=== PATIENT | male | born 1995 | race Caucasian/White ===

== ENCOUNTER 2017-07-05 14:23 | Emergency (ER) | payer BC ==
[2017-07-05 14:56] VITALS: BP 119/63
[2017-07-05] MEDS ORDERED: Dexamethasone TAB* 4 MG PO ONE (15:09)
--- NOTE | 2017-07-05 15:20 | UC ---
Respiratory Complaint HPI - HPI Summary HPI Summary: Patient presents with three days onset ears plugging, head congestion, and sore throat difficulty with swallowing. He states his throat is painful constantly, but worse when he speaks, or swallows. He is able to handle his own secretions. - History of Current Complaint Hx Obtained From: Patient Onset/Duration: Gradual Onset, Lasting Days Timing: Constant Severity Initially: Moderate Severity Currently: Moderate Associated Signs And Symptoms: Positive: URI - Risk Factors Pulmonary Embolism Risk Factors: Negative Cardiac Risk Factors: Negative Pseudomonas Risk Factors: Negative Tuberculosis Risk Factors: Negative <Catrachita Cervantes - Last Filed: 07/05/17 15:52> <Beth Gaviria - Last Filed: 07/05/17 16:41> - History of Current Complaint Chief Complaint: UCRespiratory Stated Complaint: URI Time Seen by Provider: 07/05/17 15:04 - Allergies/Home Medications Allergies/Adverse Reactions: Allergies Allergy/AdvReac Type Severity Reaction Status Date / Time No Known Allergies Allergy Verified 07/05/17 14:56 PMH/Surg Hx/FS Hx/Imm Hx Previously Healthy: Yes - Surgical History Surgical History: None Surgery Procedure, Year, and Place: Tonsils - Family History Known Family History: Positive: None, Other - father of lymphatic cancer - Social History Occupation: Student Alcohol Use: Occasionally Substance Use Type: None Smoking Status (MU): Never Smoked Tobacco - Immunization History Most Recent Influenza Vaccination: 07/05 Most Recent Tetanus Shot: due in a year <Catrachita Cervantes - Last Filed: 07/05/17 15:52> Review of Systems Constitutional: Fever, Fatigue Skin: Negative Eyes: Negative ENT: Sore Throat Respiratory: Negative Cardiovascular: Negative Gastrointestinal: Negative Genitourinary: Negative Motor: Negative Neurovascular: Negative Musculoskeletal: Negative Neurological: Negative Psychological: Negative All Other Systems Reviewed And Are Negative: Yes <Catrachita Cervantes - Last Filed: 07/05/17 15:52> Physical Exam Triage Information Reviewed: Yes Appearance: Ill-Appearing Vital Signs: Initial Vital Signs Temp 97.8 F 07/05/17 14:53 Pulse 79 07/05/17 14:53 Resp 12 07/05/17 14:53 BP 119/63 07/05/17 14:53 Pulse Ox 98 07/05/17 14:53 Vital Signs Reviewed: Yes Eye Exam: Normal ENT: Positive: Pharyngeal erythema Neck exam: Normal Respiratory Exam: Normal Cardiovascular Exam: Normal Abdominal Exam: Normal Skin Exam: Normal <Catrachita Cervantes - Last Filed: 07/05/17 15:52> Vital Signs: Initial Vital Signs Temp 97.8 F 07/05/17 14:53 Pulse 79 07/05/17 14:53 Resp 12 07/05/17 14:53 BP 119/63 07/05/17 14:53 Pulse Ox 98 07/05/17 14:53 <Beth Gaviria - Last Filed: 07/05/17 16:41> Diagnostic Evaluation - Laboratory O2 Sat by Pulse Oximetry: 98 <Catrachita Cervantes - Last Filed: 07/05/17 15:52> Respiratory Course/Dx - Course Course Of Treatment: Patient presents with three day onset fever, sore throat. Influenza was negative. Treatment penvk 500 mg by mouth four times daily x 10 days. Rest, fluids and if symtpoms fo not improve as anticipated to follow up with PCP. - Differential Dx/Diagnosis Differential Diagnosis/HQI/PQRI: Other - pharyngitis Provider Diagnoses: pharyngitis <Catrachita Cervantes - Last Filed: 07/05/17 15:52> Discharge <Catrachita Cervantes - Last Filed: 07/05/17 15:52> <Beth Gaviria - Last Filed: 07/05/17 16:41> - Discharge Plan Condition: Stable Disposition: HOME Prescriptions: Penicillin VK 500 MG TAB(NF) [Penicillin VK 500 mg Tab] 500 mg PO QID #40 tab Patient Education Materials: Pharyngitis (ED) Forms: *School Release Referrals: Michi MONSIVAIS,Jaz Reeves [Primary Care Provider] - Attestation Statement User Type: Provider - I was available for consult. This patient was seen by the [facility]. The patient was not presented to, seen by, or examined by me. -Susan <Beth Gaviria - Last Filed: 07/05/17 16:41>
== END 2017-07-05 16:05 | disposition home or self-care (01) ==
LOC: UCEAST 14:23
DX: J02.9 Acute pharyngitis, unspecified (principal)
CPT/HCPCS: 87502; 99212; G0463; J8540

== ENCOUNTER 2020-03-04 08:38 | Inpatient (IN) ==
[2020-03-04 09:19] LABS: ABS Eosinophils 0.1 10^3/ul (0-0.6); ABS Lymphocytes 1.7 10^3/ul (1.0-4.8); ABS Monocytes 0.6 10^3/ul (0-0.8); Eosinophil % 1.2 %; Hematocrit 51 % (42-52); Hemoglobin 17.2 g/dL (14.0-18.0); Lymphocyte % 35.7 %; Mean Corpuscular HGB Conc 34 g/dL (31-36); Mean Corpuscular Hemoglobin 31 pg (27-31); Mean Corpuscular Volume 91 fL (80-94); Mean Platelet Volume 10.2 fL (7.4-10.4); Platelet Count 193 10^3/uL (150-450); Red Blood Count 5.55 10^6 /uL (4.18-5.48); Red Cell Distribution Width 14 % (10-15); White Blood Count 4.9 10^3/uL (3.5-10.8)
[2020-03-04 09:29] LABS: Urine Appearance Clear; Urine Blood Negative (Negative); Urine Color Yellow; Urine Ketones Negative (Negative); Urine Protein 1+(30 mg/dL) (Negative); Urine Specific Gravity 1.025 (1.010-1.030); Urine Urobilinogen Negative (Negative)
[2020-03-04 09:30] LABS: Urine Bilirubin Negative (Negative); Urine Glucose Negative (Negative); Urine Nitrite Negative (Negative)
[2020-03-04 09:31] LABS: Urine Bacteria Absent (Absent); Urine Red Blood Cell 1+(3-5/hpf) (Absent); Urine White Blood Cell Trace(0-5/hpf) (Absent)
[2020-03-04 09:36] LABS: ALT 34 U/L (7-52); AST 21 U/L (13-39); Albumin/Globulin Ratio 2.2 (1-3); Alkaline Phosphatase 44 U/L (34-104); Anion Gap 5 mmol/L (2-11); BUN/Creatinine Ratio 13.1 (8-20); Blood Urea Nitrogen 14 mg/dL (6-24); CO2 Carbon Dioxide 30 mmol/L (22-32); Calcium 10.3 mg/dL (8.6-10.3); Chloride 103 mmol/L (101-111); EGFR African American 103.6 (>60); EGFR Non-African American 85.6 (>60); Globulin 2.3 g/dL (2-4); Glucose 105 mg/dL (70-100); Sodium 138 mmol/L (135-145); Total Protein 7.3 g/dL (6.4-8.9)
[2020-03-04 09:42] LABS: Urine Benzodiazepine Screen None Detected (None Detect); Urine Opiates Screen None Detected (None Detect)
[2020-03-04 10:19] LABS: Acetaminophen < 15 mcg/mL; Alcohol, S < 10 mg/dL (<10); Salicylate < 2.50 mg/dL (<30)
[2020-03-04 10:42] LABS: TSH (Thyroid Stimulating Horm) 1.09 mcIU/mL (0.34-5.60)
[2020-03-04] MEDS ORDERED: Al Hydrox/Mg Hydrox/Simet LIQ 30 ML UDC PO PRN (10:49)
[2020-03-05] MEDS ORDERED: LORazepam 1 mg TAB (*) ONE (10:17)
[2020-03-05] MEDS: LORazepam 1 mg TAB (*) PO SCH ×3 (10:18→20:03)
[2020-03-05] MEDS ORDERED: LORazepam 1 mg TAB (*) PO SCH (14:00)
[2020-03-05] MEDS ORDERED: LORazepam 2 mg VIAL 1 ml IM ONE (15:19)
[2020-03-05] MEDS ORDERED: Lorazepam PYXIS KEY PRN (15:19)
[2020-03-05] MEDS ORDERED: LORazepam 1 mg TAB (*) PO ONE (15:26)
[2020-03-06] MEDS: LORazepam 1 mg TAB (*) PO SCH ×4 (10:22→21:28)
[2020-03-07] MEDS: LORazepam 1 mg TAB (*) PO SCH ×3 (09:13→21:13)
[2020-03-07] MEDS: OLANzapine 5 mg TAB*ODT PO SCH (12:16)
[2020-03-08] MEDS: LORazepam 1 mg TAB (*) PO SCH ×3 (08:27→21:33)
[2020-03-08] MEDS: OLANzapine 5 mg TAB*ODT PO SCH (08:28)
[2020-03-09] MEDS: LORazepam 1 mg TAB (*) PO SCH ×3 (08:13→20:53)
[2020-03-10] MEDS: LORazepam 1 mg TAB (*) PO SCH ×3 (09:13→21:09)
[2020-03-11] MEDS: LORazepam 1 mg TAB (*) PO SCH ×3 (08:06→22:29)
[2020-03-12] MEDS: LORazepam 1 mg TAB (*) PO SCH ×3 (08:15→21:32)
[2020-03-13] MEDS: LORazepam 1 mg TAB (*) PO SCH ×3 (10:35→20:20)
[2020-03-14] MEDS: LORazepam 1 mg TAB (*) PO SCH ×3 (08:58→20:30)
[2020-03-15] MEDS: LORazepam 1 mg TAB (*) PO SCH ×3 (08:27→20:19)
[2020-03-16] MEDS: LORazepam 1 mg TAB (*) PO SCH ×3 (09:29→19:56)
[2020-03-17] MEDS: LORazepam 1 mg TAB (*) PO SCH ×3 (08:29→20:02)
[2020-03-18] MEDS: LORazepam 1 mg TAB (*) PO SCH ×3 (08:21→20:03)
[2020-03-18 09:55] LABS: Folate 12.51 ng/mL (>3.99)
[2020-03-18 12:19] LABS: HIV 4th Generation Nonreactive (Nonreactive)
[2020-03-19] MEDS: LORazepam 1 mg TAB (*) PO SCH (08:32)
[2020-03-19 10:45] VITALS: BP 139/80
== END 2020-03-19 11:15 | disposition home or self-care (01) | DRG 750 ==
LOC: ED 08:38 → BSU 10:49 → ED 14:01
PROVIDERS: ADMIT Psychiatry & Neurology Psychiatry; ATTEND Psychiatry & Neurology Psychiatry

== ENCOUNTER 2020-08-23 18:05 | Inpatient (IN) ==
[2020-08-23 19:17] LABS: ABS Lymphocytes 1.4 10^3/ul (1.0-4.8); ABS Neutrophils 9.7 10^3/ul (1.5-7.7); Eosinophil % 0.2 %; Hematocrit 50 % (42-52); Hemoglobin 17.6 g/dL (14.0-18.0); Lymphocyte % 11.2 %; Mean Corpuscular HGB Conc 36 g/dL (31-36); Mean Corpuscular Hemoglobin 31 pg (27-31); Mean Corpuscular Volume 88 fL (80-94); Mean Platelet Volume 9.3 fL (7.4-10.4); Nucleated Red Blood Cells % 0.1; Platelet Count 280 10^3/uL (150-450); Red Blood Count 5.62 10^6 /uL (4.18-5.48); Red Cell Distribution Width 14 % (10-15); White Blood Count 12.2 10^3/uL (3.5-10.8)
[2020-08-23 19:28] LABS: ALT 16 U/L (7-52); Albumin 5.2 g/dL (3.2-5.2); Albumin/Globulin Ratio 1.9 (1-3); Alkaline Phosphatase 47 U/L (34-104); BUN/Creatinine Ratio 12.8 (8-20); Blood Urea Nitrogen 14 mg/dL (6-24); CO2 Carbon Dioxide 24 mmol/L (22-32); Calcium 9.9 mg/dL (8.6-10.3); Chloride 106 mmol/L (101-111); EGFR African American 101.4 (>60); EGFR Non-African American 83.8 (>60); Globulin 2.8 g/dL (2-4); Glucose 101 mg/dL (70-100); Sodium 140 mmol/L (135-145)
[2020-08-23 19:45] LABS: Acetaminophen < 15 mcg/mL; Alcohol, S < 10 mg/dL (<10); Salicylate < 2.50 mg/dL (<30)
[2020-08-23 20:11] LABS: AST 16 U/L (13-39); Anion Gap 10 mmol/L (2-11); Potassium 3.8 mmol/L (3.5-5.0)
[2020-08-23 20:37] LABS: TSH Ultra Thyroid Stim Horm 1.93 mcIU/mL (0.34-5.60)
[2020-08-23 22:01] LABS: Urine Appearance Clear; Urine Bilirubin Negative (Negative); Urine Blood Negative (Negative); Urine Color Yellow; Urine Glucose Negative (Negative); Urine Ketones Negative (Negative); Urine Nitrite Negative (Negative); Urine Protein 1+(30 mg/dL) (Negative); Urine Specific Gravity 1.019 (1.010-1.030); Urine Urobilinogen Negative (Negative)
[2020-08-23 22:18] LABS: Urine Benzodiazepine Screen None Detected (None Detect); Urine Cannabinoids Screen None Detected (None Detect); Urine Opiates Screen None Detected (None Detect)
[2020-08-23 22:43] LABS: Urine Bacteria Absent (Absent); Urine Red Blood Cell Trace(0-2/hpf) (Absent); Urine White Blood Cell Trace(0-5/hpf) (Absent)
[2020-08-24] MEDS ORDERED: Al Hydrox/Mg Hydrox/Simet LIQ 30 ML UDC PO PRN (04:02)
[2020-08-24] MEDS: Vitamin THERAPEUTIC TAB PO SCH (14:19)
[2020-08-25] MEDS: Vitamin THERAPEUTIC TAB PO SCH (15:01)
[2020-08-26 08:20] LABS: HDL Cholesterol 40.6 mg/dL
[2020-08-26] MEDS: Vitamin THERAPEUTIC TAB PO SCH (10:01)
[2020-08-26] MEDS: LORazepam PO 0-6 for WAM protocol PO SCH ×2 (12:38→16:56)
[2020-08-27] MEDS: Vitamin THERAPEUTIC TAB PO SCH (10:54)
[2020-08-27] MEDS: LORazepam PO 0-6 for WAM protocol PO SCH (20:23)
[2020-08-28] MEDS: Vitamin THERAPEUTIC TAB PO SCH (08:33)
[2020-08-29 11:06] LABS: Copper Level 0.82 mcg/mL (0.75-1.45)
[2020-08-29] MEDS: Vitamin THERAPEUTIC TAB PO SCH (14:24)
[2020-08-30] MEDS: Vitamin THERAPEUTIC TAB PO SCH (09:22)
[2020-08-31] MEDS: Vitamin THERAPEUTIC TAB PO SCH (10:55)
[2020-09-01] MEDS: Vitamin THERAPEUTIC TAB PO SCH (09:38)
[2020-09-02] MEDS: Vitamin THERAPEUTIC TAB PO SCH (10:24)
[2020-09-02 13:02] LABS: Urine Collection Duration 24 h
[2020-09-03] MEDS: Vitamin THERAPEUTIC TAB PO SCH (10:42)
[2020-09-04] MEDS: Vitamin THERAPEUTIC TAB PO SCH (09:47)
[2020-09-04 15:41] LABS: Cyclic Citrullinated Peptide <15.6 U
[2020-09-05 09:59] LABS: ABS Eosinophils 0.1 10^3/ul (0-0.6); ABS Lymphocytes 1.7 10^3/ul (1.0-4.8); ABS Monocytes 0.6 10^3/ul (0-0.8); ABS Neutrophils 3.3 10^3/ul (1.5-7.7); Eosinophil % 1.6 %; Hematocrit 48 % (42-52); Hemoglobin 16.5 g/dL (14.0-18.0); Lymphocyte % 29.5 %; Mean Corpuscular HGB Conc 35 g/dL (31-36); Mean Corpuscular Hemoglobin 31 pg (27-31); Mean Corpuscular Volume 89 fL (80-94); Mean Platelet Volume 8.8 fL (7.4-10.4); Platelet Count 213 10^3/uL (150-450); Red Blood Count 5.33 10^6 /uL (4.18-5.48); Red Cell Distribution Width 13 % (10-15); White Blood Count 5.8 10^3/uL (3.5-10.8)
[2020-09-05 10:14] LABS: Albumin 4.4 g/dL (3.2-5.2); Calcium 9.8 mg/dL (8.6-10.3); Potassium 4.5 mmol/L (3.5-5.0); Total Bilirubin 0.4 mg/dL (0.2-1.0)
[2020-09-05 10:20] LABS: Albumin/Globulin Ratio 1.8 (1-3); BUN/Creatinine Ratio 15.1 (8-20); EGFR African American 121.8 (>60); EGFR Non-African American 100.7 (>60); Globulin 2.4 g/dL (2-4); Total Protein 6.8 g/dL (6.4-8.9)
[2020-09-05] MEDS: Vitamin THERAPEUTIC TAB PO SCH (11:03)
[2020-09-06] MEDS: Vitamin THERAPEUTIC TAB PO SCH (11:49)
[2020-09-07 00:10] LABS: IgG Immunoblot Negative (Negative); IgM Immunoblot Negative (Negative)
[2020-09-07] MEDS: Vitamin THERAPEUTIC TAB PO SCH (11:41)
[2020-09-08] MEDS: Vitamin THERAPEUTIC TAB PO SCH (12:31)
[2020-09-09] MEDS: Vitamin THERAPEUTIC TAB PO SCH (10:02)
[2020-09-10] MEDS: Vitamin THERAPEUTIC TAB PO SCH (09:38)
[2020-09-11] MEDS: Vitamin THERAPEUTIC TAB PO SCH (09:32)
[2020-09-12] MEDS: Vitamin THERAPEUTIC TAB PO SCH (10:17)
[2020-09-12] MEDS ORDERED: Gadoteridol (CONTRAST) 279.3 MG/ML 10 ML IV ONE (14:39)
[2020-09-12 17:40] LABS: ABS Eosinophils 0.1 10^3/ul (0-0.6); ABS Lymphocytes 1.6 10^3/ul (1.0-4.8); ABS Monocytes 0.7 10^3/ul (0-0.8); ABS Neutrophils 4.6 10^3/ul (1.5-7.7); Eosinophil % 1.5 %; Hematocrit 43 % (42-52); Hemoglobin 14.7 g/dL (14.0-18.0); Lymphocyte % 23.4 %; Mean Corpuscular HGB Conc 34 g/dL (31-36); Mean Corpuscular Hemoglobin 31 pg (27-31); Mean Corpuscular Volume 90 fL (80-94); Mean Platelet Volume 8.6 fL (7.4-10.4); Platelet Count 224 10^3/uL (150-450); Red Blood Count 4.79 10^6 /uL (4.18-5.48); Red Cell Distribution Width 13 % (10-15)
[2020-09-12 17:57] LABS: Albumin 4.4 g/dL (3.2-5.2); BUN/Creatinine Ratio 18.7 (8-20); C Reactive Protein 2.15 mg/L (<8.01); Calcium 9.6 mg/dL (8.6-10.3); EGFR African American 124.9 (>60); EGFR Non-African American 103.2 (>60); Globulin 2.2 g/dL (2-4); Potassium 4.1 mmol/L (3.5-5.0); Total Bilirubin 0.3 mg/dL (0.2-1.0); Total Protein 6.6 g/dL (6.4-8.9)
[2020-09-12 19:23] LABS: Erythrocyte Sed Rate 0 mm/Hr (0-14)
[2020-09-13] MEDS: Vitamin THERAPEUTIC TAB PO SCH (10:17)
[2020-09-14] MEDS: Vitamin THERAPEUTIC TAB PO SCH (10:46)
[2020-09-15] MEDS: Vitamin THERAPEUTIC TAB PO SCH (09:29)
[2020-09-16] MEDS: Vitamin THERAPEUTIC TAB PO SCH (11:19)
[2020-09-17] MEDS: Vitamin THERAPEUTIC TAB PO SCH (09:59)
[2020-09-18] MEDS: Vitamin THERAPEUTIC TAB PO SCH (09:46)
[2020-09-19] MEDS: Vitamin THERAPEUTIC TAB PO SCH (09:43)
[2020-09-20] MEDS: Vitamin THERAPEUTIC TAB PO SCH (10:41)
[2020-09-21] MEDS: Vitamin THERAPEUTIC TAB PO SCH (11:33)
[2020-09-22] MEDS: Vitamin THERAPEUTIC TAB PO SCH (11:03)
[2020-09-23] MEDS: Vitamin THERAPEUTIC TAB PO SCH (09:59)
[2020-09-23 18:32] LABS: Urine Appearance Clear; Urine Bilirubin Negative (Negative); Urine Blood Negative (Negative); Urine Color Yellow; Urine Glucose Negative (Negative); Urine Ketones Negative (Negative); Urine Nitrite Negative (Negative); Urine Protein Negative (Negative); Urine Specific Gravity 1.023 (1.010-1.030); Urine Urobilinogen Negative (Negative)
[2020-09-23 19:06] LABS: BUN/Creatinine Ratio 23.1 (8-20); Calcium 10.3 mg/dL (8.6-10.3); EGFR African American 107.1 (>60); EGFR Non-African American 88.5 (>60); Potassium 4.8 mmol/L (3.5-5.0)
[2020-09-24] MEDS: Vitamin THERAPEUTIC TAB PO SCH (10:25)
[2020-09-24] MEDS ORDERED: diPHENhydraMINE 25 mg TAB PO PRN (10:57)
[2020-09-25] MEDS: Vitamin THERAPEUTIC TAB PO SCH (09:27)
[2020-09-26] MEDS: Vitamin THERAPEUTIC TAB PO SCH (09:27)
[2020-09-26 21:57] LABS: Albumin/Globulin Ratio 1.9 (1-3); BUN/Creatinine Ratio 22.4 (8-20); Calcium 9.9 mg/dL (8.6-10.3); EGFR African American 103.6 (>60); EGFR Non-African American 85.6 (>60); Globulin 2.7 g/dL (2-4); Potassium 3.9 mmol/L (3.5-5.0); Total Bilirubin 0.8 mg/dL (0.2-1.0); Total Protein 7.7 g/dL (6.4-8.9)
[2020-09-27] MEDS: Vitamin THERAPEUTIC TAB PO SCH (12:46)
[2020-09-27 18:43] LABS: Hematocrit 46 % (42-52); Hemoglobin 15.7 g/dL (14.0-18.0); Mean Corpuscular HGB Conc 34 g/dL (31-36); Mean Corpuscular Hemoglobin 31 pg (27-31); Mean Corpuscular Volume 90 fL (80-94); Platelet Count 282 10^3/uL (150-450); Red Blood Count 5.08 10^6 /uL (4.18-5.48); Red Cell Distribution Width 14 % (10-15); White Blood Count 9.2 10^3/uL (3.5-10.8)
[2020-09-28] MEDS: Vitamin THERAPEUTIC TAB PO SCH (10:59)
[2020-09-28 11:51] LABS: Plasma Free Metanephrine 0.7 nmol/L (<0.50)
[2020-09-28] MEDS ORDERED: LORazepam 2 mg VIAL 1 ml IM ONE (17:35)
[2020-09-28] MEDS ORDERED: LORazepam 2 mg VIAL 1 ml ONE (17:38)
[2020-09-28] MEDS ORDERED: Lorazepam PYXIS KEY PRN (17:53)
[2020-09-29] MEDS: Vitamin THERAPEUTIC TAB PO SCH (09:38)
[2020-09-30] MEDS: Vitamin THERAPEUTIC TAB PO SCH (07:54)
[2020-09-30 07:59] VITALS: BP 155/105
[2020-09-30] MEDS ORDERED: LORazepam 2 mg VIAL 1 ml ONE (09:17)
[2020-09-30] MEDS ORDERED: LORazepam 2 mg VIAL 1 ml IM ONE (09:20)
== END 2020-09-30 09:40 | DRG 750 ==
LOC: ED 18:05 → BSU 08-24 02:01
PROVIDERS: ADMIT Psychiatry & Neurology Psychiatry; ATTEND Psychiatry & Neurology Psychiatry